=== PATIENT | male | born 1985 | race African-American/Black ===

== ENCOUNTER 2017-05-19 13:04 | Day surgery (SDC) | payer OTHER ==
[2017-05-19] MEDS ORDERED: PROPOFOL 40 ML (15:01)
[2017-05-19] MEDS ORDERED: LIDOCAINE 2% (SDV) 5 ML INJ (15:01)
== END 2017-05-19 17:26 | disposition home or self-care (01) ==
LOC: GIL 13:04
DX: K64.8 Other hemorrhoids (principal); K51.90 Ulcerative colitis, unspecified, without complications; E66.9 Obesity, unspecified; Z68.32 Body mass index [BMI] 32.0-32.9, adult
CPT/HCPCS: 45380; 88305